=== PATIENT | male | born 1965 | race Caucasian/White ===

== ENCOUNTER 2017-06-01 06:40 | Outpatient (CLI) | payer OTHER ==
[~2017-06-01 06:40] MED LIST: ALTACE10 MG PO; ASA-EC81 MG PO; AVAPRO150 MG PO; CYMBALTA60 MG PO; HUMALOG100 U/ML SUBCUTANEO; INSPRA25 MG PO; JANUMET 50-501 UDTAB PO; LANTUS SOLOSTAR3 ML SUBCUTANEO; LIPITOR20 MG PO
== END 2017-06-01 10:01 | disposition home or self-care (01) ==
LOC: LAB 06:40
DX: N18.2 Chronic kidney disease, stage 2 (mild) (principal)

== ENCOUNTER 2017-07-07 07:06 | Outpatient (CLI) | payer OTHER | END 2017-07-07 07:11 | disposition home or self-care (01) | LOC: LAB 07:06 | DX: R80.8 Other proteinuria (principal) ==

== ENCOUNTER 2017-10-12 06:27 | Outpatient (CLI) | payer OTHER | END 2017-10-12 06:50 | disposition home or self-care (01) | LOC: LAB 06:27 | DX: E11.65 Type 2 diabetes mellitus with hyperglycemia (principal); E06.3 Autoimmune thyroiditis; E78.2 Mixed hyperlipidemia ==

== ENCOUNTER 2017-11-19 06:44 | Outpatient (CLI) | payer OTHER | END 2017-11-19 06:55 | disposition home or self-care (01) | LOC: LAB 06:44 | DX: N18.2 Chronic kidney disease, stage 2 (mild) (principal); R80.0 Isolated proteinuria ==

== ENCOUNTER 2017-12-14 06:58 | Outpatient (CLI) | payer OTHER | END 2017-12-14 07:00 | disposition home or self-care (01) | LOC: LAB 06:58 | DX: N18.2 Chronic kidney disease, stage 2 (mild) (principal); R80.0 Isolated proteinuria ==

== ENCOUNTER 2018-02-01 11:57 | Emergency (ER) | payer OTHER ==
[~2018-02-01] VITALS: Ht 162.6 cm; Wt 133.8 kg
== END 2018-02-01 17:25 | disposition home or self-care (01) ==
LOC: ER 11:57
DX: R07.81 Pleurodynia (principal)

== ENCOUNTER → 2018-02-12 06:47 | Outpatient (CLI) | payer OTHER | END | disposition home or self-care (01) | LOC: LAB 06:47 | DX: E11.65 Type 2 diabetes mellitus with hyperglycemia (principal); E06.3 Autoimmune thyroiditis; N18.2 Chronic kidney disease, stage 2 (mild); R80.0 Isolated proteinuria ==

== ENCOUNTER → 2018-05-06 08:08 | Outpatient (CLI) | payer OTHER | END | disposition home or self-care (01) | LOC: LAB 08:08 | DX: N18.3 Chronic kidney disease, stage 3 (moderate) (principal); R80.0 Isolated proteinuria ==

== ENCOUNTER 2018-05-24 07:30 | Outpatient (CLI) | payer OTHER | END 2018-05-24 07:39 | disposition home or self-care (01) | LOC: LAB 07:30 | DX: E11.65 Type 2 diabetes mellitus with hyperglycemia (principal) ==

== ENCOUNTER 2018-08-19 07:18 | Outpatient (CLI) | payer OTHER | END 2018-08-19 16:46 | disposition home or self-care (01) | LOC: LAB 07:18 | DX: E06.3 Autoimmune thyroiditis (principal); E78.2 Mixed hyperlipidemia; E11.65 Type 2 diabetes mellitus with hyperglycemia ==

== ENCOUNTER 2018-09-23 07:34 | Outpatient (CLI) | payer OTHER | END 2018-09-23 09:01 | disposition home or self-care (01) | LOC: LAB 07:34 | DX: N18.3 Chronic kidney disease, stage 3 (moderate) (principal); I12.9 Hypertensive chronic kidney disease with stage 1 through stage 4 chronic kidney disease, or unspecified chronic kidney disease ==

== ENCOUNTER 2018-12-13 06:46 | Outpatient (CLI) | payer OTHER | END 2018-12-13 06:59 | disposition home or self-care (01) | LOC: LAB 06:46 | DX: E11.65 Type 2 diabetes mellitus with hyperglycemia (principal); E78.2 Mixed hyperlipidemia ==

== ENCOUNTER → 2018-12-23 06:50 | Outpatient (CLI) | payer OTHER | END | disposition home or self-care (01) | LOC: LAB 06:50 | DX: N18.2 Chronic kidney disease, stage 2 (mild) (principal); R80.0 Isolated proteinuria ==

== ENCOUNTER 2019-02-19 06:33 | Outpatient (CLI) | payer OTHER | END 2019-02-19 06:40 | disposition home or self-care (01) | LOC: LAB 06:33 | DX: N18.2 Chronic kidney disease, stage 2 (mild) (principal) ==

== ENCOUNTER 2019-03-25 06:32 | Outpatient (CLI) | payer OTHER | END 2019-03-25 06:43 | disposition home or self-care (01) | LOC: LAB 06:32 | DX: E11.65 Type 2 diabetes mellitus with hyperglycemia (principal) ==

== ENCOUNTER 2019-04-14 06:51 | Outpatient (CLI) | payer OTHER | END 2019-04-14 07:00 | disposition home or self-care (01) | LOC: LAB 06:51 | DX: R80.8 Other proteinuria (principal) ==